=== PATIENT | male | born 1935 | race Caucasian/White ===

== ENCOUNTER 2018-09-02 10:27 | Emergency (ER) | payer BC ==
[2018-09-02 11:04] LABS: Bilirubin Negative (Negative); Blood, Urine Large (Negative); Glucose, Urine (Dipstick) Negative (Negative); Leukocyte Large (Negative); Nitrite Positive (Negative); Protein, Urine (Dipstick) Negative (Neg-Trace); Urobilinogen 0.2 mg/dL (0.2-1.0)
[2018-09-02 11:05] LABS: Clarity CLEAR (Clear)
[2018-09-02 11:09] LABS: Bacteria/HPF 2+ HPF (None Seen); RBC/HPF GREATER THAN 50-TNTC HPF (0-3); Renal Epithelial None Seen HPF (0-3); Squamous Epithelial 0-3 HPF (0-3); Transitional Epithelial 0-3 HPF (0-3)
[2018-09-02 11:10] LABS: Hyaline Casts/LPF NONE SEEN LPF (0-3 Hyaline)
== END 2018-09-02 11:56 | disposition home or self-care (01) ==
LOC: ERS 10:27
DX: N30.01 Acute cystitis with hematuria (principal); I10 Essential (primary) hypertension; N40.1 Benign prostatic hyperplasia with lower urinary tract symptoms; R33.8 Other retention of urine; F17.210 Nicotine dependence, cigarettes, uncomplicated; Z79.899 Other long term (current) drug therapy; Z79.82 Long term (current) use of aspirin
CPT/HCPCS: 51702; 81003; 81015; 87077; 87086; 87186

== ENCOUNTER 2019-01-14 11:45 | Emergency (ER) | payer BC, MEDICARE | END 2019-01-14 12:08 | disposition home or self-care (01) | LOC: SCSER 11:45 | DX: T78.40XA Allergy, unspecified, initial encounter (principal); I10 Essential (primary) hypertension; Z87.891 Personal history of nicotine dependence; Z87.01 Personal history of pneumonia (recurrent) | CPT/HCPCS: 99283 ==